=== PATIENT | male | born 1970 | race Caucasian/White ===

== ENCOUNTER → 2024-11-23 | Outpatient (CLI) | payer OTHER, SELFPAY ==
--- NOTE | 2024-11-23 09:09 | RAD_ITS ---
PROCEDURE: ELBOW MIN 3 VIEWS 11/23/2024 REASON FOR EXAM: R ELBOW. LOCKING TECHNIQUE: Three-view right elbow COMPARISON: None. RAD/Elbow min 3 Views IMPRESSION: Mild degenerative changes are seen in the right elbow joint, most prominent in the humeroulnar articulation. No joint effusion is seen. Satisfactory osseous alignment is noted. No fracture site is seen Reading Location: [place] [id number]
== END | disposition home or self-care (01) ==
LOC: MTRAD 09:08
PROVIDERS: PCP Family Medicine; Referring Provider Family Medicine; Visit Provider Family Medicine
DX: M25.529 Pain in unspecified elbow (principal)
CPT/HCPCS: 73080